=== PATIENT | male | born 1980 | race Caucasian/White ===

== ENCOUNTER 2017-01-07 12:20 | Emergency (ER) | payer OTHER ==
[~2017-01-07] VITALS: Ht 182.9 cm; Wt 120.0 kg
[~2017-01-07 12:20] MED LIST: NEOM0.1S4 EACH EYE; NOVONP2 SQ; NOVORP2 SQ
[2017-01-07 12:24] VITALS: BP 131/88; PULSE 106; RESP 16; TEMP 98.2; O2SAT 95
[2017-01-07] MEDS ORDERED: LISI-515 PO (12:44)
--- NOTE | 2017-01-07 12:59 | PD ---
HPI Chief Complaint: Numbness/Tingling Time Seen by Provider: 12:32 Travel History International Travel<30 days: No Contact w/Intl Traveler<30days: No Traveled to known affect area: No History of Present Illness HPI This 36-year-old male says that he noted numbness on the lateral aspect of his right leg this morning. Since the numbness started it has been fairly persistent. It has not gotten better or worse. He has not had a headache. He has not had any back pain there is no history of trauma. He has a history of diabetes for about 30 to years. His blood sugar this morning was 130. There has not been any weakness. PFSH Past Medical History Diabetes: Yes Patient Takes Glucophage: No Hypertension: Yes Tetanus Vaccination: > 5 Years Influenza Vaccination: No Past Surgical History Surgical History: No Previous Surgery Social History Alcohol Use: Yes (SOCIAL) Tobacco Use: No Substance Use: No Allergies-Medications (Allergen,Severity, Reaction): Coded Allergies: No Known Allergies (Unverified , 01/07/17) Reported Meds & Prescriptions Reported Meds & Active Scripts Active Reported Lisinopril 20 Mg Tab 20 Mg PO DAILY Novolin N Inj (Insulin Human NPH) 1,000 Unit/10 Ml Vial 12 Units SQ HS Novolin R Inj (Insulin Human Regular) 1,000 Unit/10 Ml Vial 0 SQ DIRECTED Sliding Scale As Directed. Novolin N Inj (Insulin Human NPH) 1,000 Unit/10 Ml Vial 16 Units SQ DAILY Review of Systems General / Constitutional: No: Fever, Chills Eyes: No: Diploplia, Blurred Vision HENT: No: Headaches, Vertigo Cardiovascular: No: Chest Pain or Discomfort, Palpitations Respiratory: No: Cough, Shortness of Breath Gastrointestinal: No: Nausea, Vomiting Genitourinary: No: Urgency, Frequency Musculoskeletal: No: Myalgias, Arthralgias Skin: No Rash, No Itching Neurologic: Positive: Sensory Disturbance, No: Weakness, Dizziness Psychiatric: No: Anxiety, Depression Hematologic/Lymphatic: No: Easy Bruising Physical Exam Narrative GENERAL: Well-developed male SKIN: Focused skin assessment warm/dry. HEAD: Atraumatic. Normocephalic. EYES: Pupils equal and round. No scleral icterus. No injection or drainage. ENT: No nasal bleeding or discharge. Mucous membranes pink and moist. NECK: Trachea midline. No JVD. CARDIOVASCULAR: Regular rate and rhythm. No murmur appreciated. RESPIRATORY: No accessory muscle use. Clear to auscultation. Breath sounds equal bilaterally. GASTROINTESTINAL: Abdomen soft, non-tender, nondistended. Hepatic and splenic margins not palpable. MUSCULOSKELETAL: No obvious deformities. No clubbing. No cyanosis. No edema. NEUROLOGICAL: Awake and alert. No obvious cranial nerve deficits. Motor grossly within normal limits. Normal speech. Examining the legs there are good pulses bilaterally. There is good strength in plantar and dorsiflexion. There is diminished sensation on the lateral aspect of the right leg below the knee PSYCHIATRIC: Appropriate mood and affect; insight and judgment normal. Data Data Last Documented VS Vital Signs Date Time Temp Pulse Resp B/P Pulse Ox O2 Delivery O2 Flow Rate FiO2 01/07/17 12:38 101 01/07/17 12:24 98.2 16 131/[address] Brain W/O Iv Contrast(Rout) (01/07/17 12:53) Ct Lumb Spine W/O Contrast (01/07/17 12:53) MDM Medical Decision Making Medical Screen Exam Complete: Yes Emergency Medical Condition: Yes Medical Record Reviewed: Yes Differential Diagnosis Differential includes peripheral neuropathy, lumbosacral neuropathy, radiculopathy Narrative Course This patient's deficit is confined to numbness of the lateral aspect of the right leg. This could be an L5 radiculopathy. There does not appear to be any motor involvement. I suspect this is neuropathy related to his diabetes. I did do a CT scan of the lumbar spine and of the brain to make sure there is no structural etiology. CT of the brain is negative. CT of the lumbar spine shows some mild bilateral foraminal narrowing but no significant spinal stenosis. Patient will be released Diagnosis Primary Impression: Neuropathy Disposition: 01 DISCHARGE HOME Condition: Stable Ortiz King MD Jan 07, 2017 12:59
--- NOTE | 2017-01-07 13:23 | RADHPO ---
EXAM DATE/TIME: 01/07/2017 13:03 [facility] COMPARISON: No previous studies available for comparison. INDICATIONS : Trans ischemic attack. Right lateral low leg numbness since this morning. RADIATION DOSE: 66.59 CTDIvol (mGy) MEDICAL HISTORY : Diabetes mellitus type 2. Hypertension. SURGICAL HISTORY : None. ENCOUNTER: Initial ACUITY: 1 day PAIN SCALE: 0/10 LOCATION: cranial TECHNIQUE: Multiple contiguous axial images were obtained of the head. Using automated exposure control and adj ustment of the mA and/or kV according to patient size, radiation dose was kept as low as reasonably a chievable to obtain optimal diagnostic quality images. FINDINGS: CEREBRUM: The ventricles are normal for age. No evidence of midline shift, mass lesion, hemorrhage or acute in farction. No extra-axial fluid collections are seen. POSTERIOR FOSSA: The cerebellum and brainstem are intact. The 4th ventricle is midline. The cerebellopontine angle i s unremarkable. EXTRACRANIAL: The visualized portion of the orbits is intact. Scattered subcutaneous nodules are noted. SKULL: The calvaria is intact. No evidence of skull fracture. CONCLUSION: 1. No acute intracranial abnormality. 2. Scattered subcutaneous nodules. Aman Eason MD on January 07, 2017 at 13:20 Board Certified Radiologist. This report was verified electronically.
--- NOTE | 2017-01-07 13:41 | RADHPO ---
EXAM DATE/TIME: 01/07/2017 13:06 [facility] COMPARISON: No previous studies available for comparison. INDICATIONS : Radiculopathy, right lateral low leg numbness since this morning. RADIATION DOSE: 40.12 CTDIvol (mGy) MEDICAL HISTORY : Diabetes mellitus type 2. Hypertension. SURGICAL HISTORY : None. ENCOUNTER: Initial ACUITY: 1 day PAIN SCALE: 4/10 LOCATION: Right low leg TECHNIQUE: Volumetric scanning of the lumbar spine was performed. Multiplanar reconstructions in the sagittal, coronal and oblique axial planes were performed. Using automated exposure control and adjustment of the mA and/or kV according to patient size, radiation dose was kept as low as reasonably achievable t o obtain optimal diagnostic quality images. FINDINGS: VERTEBRAE: Normal vertebral body height. ALIGNMENT: No evidence of subluxation. T12-L1: The thecal sac has a normal diameter. No evidence of disc bulge or protrusion. The neural foramina are patent bilaterally. L1-L2: The thecal sac has a normal diameter. No evidence of disc bulge or protrusion. The neural foramina are patent bilaterally. L2-L3: The thecal sac has a normal diameter. No evidence of disc bulge or protrusion. The neural foramina are patent bilaterally. L3-L4: There is a mild diffuse disc bulge as well as facet joint hypertrophy and ligament laxity resulting i n mild bilateral foraminal narrowing but no significant spinal stenosis. No focal disc herniation is noted. L4-L5: There is a mild diffuse disc bulge as well as facet joint hypertrophy and ligament laxity resulting i n mild bilateral foraminal narrowing but no significant spinal stenosis. No focal disc herniation is noted. L5-S1: There is a mild diffuse disc bulge as well as facet joint hypertrophy and ligament laxity resulting i n mild bilateral foraminal narrowing but no significant spinal stenosis. No focal disc herniation is noted. CONCLUSION: 1. No acute compression fracture, spondylolisthesis or spondylolysis. 2. Mild diffuse disc bulge, facet joint hypertrophy and ligamentous laxity at L3-4, L4-5 and L5-S1 re sulting in mild bilateral foraminal narrowing but no significant spinal stenosis. Aman Eason MD on January 07, 2017 at 13:32 Board Certified Radiologist. This report was verified electronically.
[2017-01-07 14:01] VITALS: BP 125/82; PULSE 99; RESP 14; O2SAT 100
== END 2017-01-07 14:26 | disposition home or self-care (01) ==
LOC: PHED 12:20
DX: G62.9 Polyneuropathy, unspecified (principal); E11.9 Type 2 diabetes mellitus without complications; I10 Essential (primary) hypertension
CPT/HCPCS: 70450; 72131